=== PATIENT | male | born 1955 | race Caucasian/White ===

== ENCOUNTER 2017-01-12 15:18 | Inpatient (IN) | payer OTHER ==
[~2017-01-12] VITALS: Ht 172.7 cm; Wt 96.9 kg
--- NOTE | 2017-01-12 15:22 | ED.REPORT ---
HPI-Overdose/Alcohol Toxicity Date of Service Jan 12, 2017 ED Provider: Jerome Jackman Pt is a 61 year old male with a history of DM, and suicidal attempts via drug overdose who presents to the ED via EMS after overdosing on prescription medication. Per EMS, it was initially unclear what the pt took, but they determined that the pt's spouse may be missing 50-60 pills of Alprazolam. EMS reports that the pt was sitting on the couch without any notes, and he was last seen well at 11:00 today. EMS determined that the pt's blood sugar was 280 upon arrival and his blood pressure was around 122/30. Per spouse, the pt took 60 tablets of 0.5 mg of Alprazolam. The pt as previously treated at [facility] at [place], [place] for prior episodes. He has had 5 episodes with attempts of overdose previously due to marital issues. Nursing Notes Stated Complaint: OVERDOSE Chief Complaint: OVERDOSE Nursing Notes Reviewed: Yes ([employer] meds not reconciled) General Time Seen by Provider: 15:24 Chief Complaint Drug overdose Hx Obtained From: EMS Arrived By: Ambulance Onset Occurred: Onset unknown Symptom Duration: Since onset Severity: Current: No pain currently Severity: Maximum: No pain Recent Healthcare: No recent doctor visit, No recent hospitalization Similar Sx Previous: Yes Risk-Overdose/Alcohol Tox )( Suicide Risk Stratification : Previous attempt: Prior psych admission RF Statements: Risk factors reviewed (not predictive) Past Medical History Past Medical History Suicidal attempts via prescription drug overdose (5x) Reports: Diabetes mellitus Past Surgical History Denies Smoking History Unknown if Ever Smoker Social History Other Social History: Ambulatory Status Independent Review of Systems Unable to Obtain ROS Patient condition Complete sys rev & neg: except as marked. Physical Exam Initial Vital Signs Vital Signs (First) Date Time Temp Pulse Resp B/P Pulse Ox O2 Delivery O2 Flow Rate FiO2 01/12/17 15:46 36.8 97 29 95/64 96 Nasal Cannula 4 Initial VS: Reviewed, Unavailable Head / Eyes: Atraumatic, Normocephalic Neck: Supple, Full range of motion Extremities: Vascular intact, Neuro intact Skin: Warm, Dry, No cyanosis Alertness: Positive: Sleeping but arousable GENERAL/CONSTITUTIONAL: Presentation is consistent with benzodiazepine use. Respiratory / Chest: Atraumatic, Breath sounds NL, Breath sounds = bilat, No respiratory distress End tidal CO2. Cardiovascular: Heart rate NL, Regular rhythm, Heart sounds NL Blood pressure in the 90s. Abdomen: Atraumatic, Soft, Non-tender NEUROLOGIC: Arousable with sternal rub. Unable to Evaluate: Positive: Unresponsive Interpretation & Diagnostics Lab Results Interpretation Result Diagram: 01/12/17 1548 01/12/17 1548 Test 01/12/17 15:48 01/12/17 16:09 01/12/17 17:09 01/12/17 17:32 White Blood Count 7.1th/mm3 (3.8-10.1) Red Blood Count 4.66mil/mm3 (4.40-5.80) Hemoglobin 14.5g/dL (13.8-17.2) Hematocrit 42.2% (41.0-50.0) Mean Corpuscular Volume 90.6fL (81-100) Mean Corpuscular Hemoglobin 31.1pg (27.0-35.0) Mean Corpuscular Hemoglobin Concent 34.4% (32.0-37.0) Red Cell Distribution Width 13.3% (12.3-15.4) Platelet Count 183bil/L (150-400) Sodium Level 135mEq/L (134-144) Potassium Level 5.1mEq/L (3.5-5.2) Chloride Level 99mEq/L (97-108) Carbon Dioxide Level 20mmol/L (18-29) Blood Urea Nitrogen 15mg/dL (6-24) Creatinine 0.60mg/dL (0.76-1.27) Estimat Glomerular Filtration Rate 147mL/min (>59) Glucose Level 272mg/dL (60-99) Calcium Level 9.3mg/dL (8.5-10.1) Total Bilirubin 0.5mg/dL (0.0-1.2) Aspartate Amino Transf (AST/SGOT) 24U/L (0-50) Alanine Aminotransferase (ALT/SGPT) 22U/L (0-44) Alkaline Phosphatase 81U/L (25-160) Total Protein 6.9g/dL (6.4-8.4) Albumin 4.1g/dL (3.4-5.0) Salicylates Level < 3.0ug/mL (30-250) Acetaminophen Level < 15.0ug/mL Rx (10-25) Alcohols < 10mg/dL (0-10) Hold Urine Received (Received) Urine Color Yellow (YELLOW) Urine Appearance Clear (CLEAR,HAZY) Urine pH 5.5 (5.0-8.0) Urine Specific [place] 1.020 (1.003-1.035) Urine Protein Negativemg/dL (NEG,TRACE) Urine Glucose (UA) 500mg/dL (NEGATIVE) Urine Ketones Negativemg/dL (NEGATIVE) Urine Occult Blood Negative (NEGATIVE) Urine Nitrite Negative (NEGATIVE) Urine Bilirubin Negative (NEGATIVE) Urine Urobilinogen Normalmg/dL (NORMAL) Urine Leukocyte Esterase Negative (NEGATIVE) Urine RBC 0-2/hpf (0-2) Urine WBC 0-5/hpf (0-5) Urine Epithelial Cells Few/hpf (NONE-MOD) Urine Crystals None seen (NONE SEEN) Urine Bacteria Few/hpf (NONE-FEW) Urine Hyaline Casts None/lpf (NONE) Urine Granular Casts None seen (NONE SEEN) Urine Waxy Casts None seen (NONE SEEN) Urine Red Blood Cell Casts None seen (NONE SEEN) Urine White Blood Cell Casts None seen (NONE SEEN) Urine Mucus Present (None Seen) Urine Trichomonas None seen (NONE SEEN) Urine Yeast None (NONE SEEN) Urinalysis Comment None Urine Culture Reflexed Not indicated Urine Opiates Screen Negative Urine Methadone Screen Negative Urine Barbiturates Screen Negative Urine Amphetamines Screen Negative Urine Benzodiazepines Screen Positive Urine Cocaine Metabolite Screen Negative Urine Cannabinoids Screen Negative Test 01/12/17 18:35 Lab Results Interpretation: CBC normal CMP mild hyperglycemia Tox screen positive benzos All negative Tylenol negative Salicylates negative ECG Interpretation ECG Interpretation: No QRS widening. No toxicomes evident on ECG Time: 15:54 Interpreted by: ED physician Normal ECG Interpretation: Normal sinus rhythm X-Ray Chest Interpretation Chest Xray Interpretation: IMPRESSION: 1. Low lung volumes with vascular crowding and probable pulmonary edema. 2. Right suprahilar medial opacity may reflect atelectasis. Recommend a repeat PA and lateral study when clinically feasible. Dictated by: Jamaal Burnett M.D. on 01/12/2017 at 18:08 View: Portable, 1 view Interpretation / Wet Read by: Interpret - Radiologist Re-Eval/Medical Decision Med Decision/Clinical Course This is a 61-year-old male brought from home by EMS with a reported suspected intentional overdose. History is from the and EMS, patient cannot provide any history himself. Alcohol intentional overdoses, they just moved to this area, there is an admit the and he was found with decreased responsiveness- and later turned out the indicates that all of her new alprazolam prescription-#60 tabs of 0.5 mg alprazolam are missing. Patient was last seen normal at 11 AM. The reports none of the patient's own routine medicines are missing. The patient's had multiple admissions, including ICU admission and intubation in the past year following intentional overdoses treated at [facility] in [place], [place] [phone] and I requested records, but not yet received any. Patient does not have a local psychiatrist. She is a diabetic, Accu-Chek was marginally elevated by EMS. The patient's profoundly altered, but appears to be adequately protecting the airway. On arrival the patient arouses to sternal rub, but cannot provide any useful history. Despite the obtundation, the patient has adequate respiratory effort, normal end-tidal CO2, no hypoxia, and with stimulation appears to be adequately protecting his airway sets them decided to watch him decide if intubation might become necessary, but do not find indicated at this time. Did place a nasopharyngeal airway which provided just enough irritant for the patient reaching up and seemed to keep him awake. A Boo was also placed. U tox is positive for benzos. Labs were otherwise normal-negative Tylenol, salicylates.. The patient remained fairly silent, but arousable. At times he required a sternal rub, but he did start to improve responded just voice. He is being admitted to the ICU for continued management. Social workers involved to track down family and attained affidavits for the mental health evaluation should occur once the patient is medically cleared. The case is discussed with the admitting hospitalist. Source of Hx: Old records, EMS Re-Evaluation/Progress #1: Time of Eval: 16:04 Re-Evaluation/Progress Note: Pt rechecked. He has his eye half open. Attempted to obtain more information from pt. All questions addressed. Re-Evaluation/Progress #2: Time of Eval: 16:15 Re-Evaluation/Progress Note: Pt rechecked. Informed pt's spouse of plan for admission. Pt's spouse understands and agrees with plan for admission. All questions addressed. Re-Evaluation/Progress #3: Time of Eval: 18:00 Re-Evaluation/Progress Note: Pt rechecked. Attempted to arouse pt without success. Re-Evaluation/Progress #4: Time of Eval: 18:42 Re-Evaluation/Progress Note: Pt rechecked. Pt was mildly aroused to voice. Re-Evaluation/Progress #5: Time of Eval: 19:09 Re-Evaluation/Progress Note: Pt rechecked. Met with pt's family and informed them of the pt's current condition. Allowed the family to visit the pt. All questions addressed. Consultation #1: Call Returned at: 16:15 Note: Consulted with pt's spouse, Dorothea Carbajal. She reports that the pt took 60 tablets of 0.5 mg of Alprazolam. The pt as previously treated at [facility] at [place], [place] for prior episodes. He has had 5 episodes previously due to marital issues. All questions addressed. Consultation #2: Referral / Consult Name: Jay Manriquez MD Consulted With: Hospitalist Call Returned at: 16:24 Oil Spot Washer: Will see patient, Agrees with eval, Agrees with plan, Accepts admit Differential Diagnosis: Positive: Depression, Overdose, benzodiazapine, Overdose, intentional, Suicidal attempt, Negative: Alcohol abuse Counseled Regarding: Diagnosis, Lab results, Need for admission Discharge & Departure Impression: Primary Impression: Benzodiazepine overdose Encounter type: initial encounter Injury intent: intentional self-harm Qualified Code: T42.4X2A - Poisoning by benzodiazepines, intentional self-harm , initial encounter Additional Impression: Suicidal overdose Encounter type: initial encounter Qualified Code: T50.902A - Poisoning by unspecified drugs, medicaments and biological substances, intentional self-harm , initial encounter Disposition: ADMITTED TO HOSPITAL Discharge Condition All VS Reviewed: Yes Condition: Stable Referrals: [facility] Scribe Attestation Portions of this note were transcribed by Radha Callahan. I, Dr. Jackman personally performed the history, physical exam and medical decision-making; I reviewed and confirmed the accuracy of the information in the transcribed note. Signed by: Sia Damon, 01/12/17 and 18:00. copies to: [facility] Jerome Jackman MD Jan 12, 2017 15:22 Radha Irene Jan 12, 2017 15:27
[2017-01-12] MEDS ORDERED: 0.9% Sodium Chloride 1,000 ML IV ONE (15:26)
[2017-01-12 15:46] VITALS: BP 95/64; PULSE 97; RESP 29; O2SAT 96
[2017-01-12 15:53] LABS: Mean Corpuscular Hemoglobin 31.1 pg (27.0-35.0); Mean Corpuscular Volume 90.6 fL (81-100)
[2017-01-12 15:57] VITALS: BP 117/73; PULSE 104; RESP 28; O2SAT 98
[2017-01-12 16:16] VITALS: BP 116/86; PULSE 104; RESP 30; O2SAT 97
[2017-01-12] MEDS ORDERED: Ondansetron 2 mg/mL 2 mL Inj IVPUSH PRN (17:00)
--- NOTE | 2017-01-12 17:24 | PCM.HPMED ---
Subjective Date of Service Jan 12, 2017 Primary Provider: Admitting Physician: Primary Care Physician: Attending Physician: Chief Complaint: Suicidal attempt, benzodiazepine overdose History of Present Illness: 61-year-old male with previous drug overdose, marital problem presented with benzodiazepine overdose. Since patient was deeply sedated, history was obtained by previous records. According to ED provider, Per EMS, patient was sitting on the couch, unresponsive, last normal was 11 AM today, arrived to the ED 3pm. Aspirin spouse, patient took 60 tablets of 0.5 mg alprazolam. The pt as previously treated at [facility] at [place], [place] for prior episodes. He has had 5 episodes with attempts of overdose previously due to marital issues.' s contact was unable to verify in ED. ED VS 95/64, 97, 29, afebrile, 96% on 4liters, pt was able to protect his airways. Very somnolent, but awake by noxious stimuli. EKG sinus [id number], no high degree blocks, no Qt prolongation. VS remained stable 110-120s, mildly tachypneic 28-30s, but breathing regularly. labs showed unremarkable cbc, cmp except [id number] Review of Systems: Unable to obtain review of system as patient was deeply sedated Home Medications Unable to obtain review of system as patient was deeply sedated PMH Unable to obtain review of system as patient was deeply sedated Social History Smoking Status: Unknown if Ever Smoker Exam Vital Signs Vital Sign - Last Date Time Temp Pulse Resp B/P Pulse Ox O2 Delivery O2 Flow Rate FiO2 01/12/17 16:16 104 30 116/86 97 Nasal Cannula 2 01/12/17 15:57 36.8 Exam awake with noxious stimuli, incoherent sounds, PERRLA, no JVD, MMM, no LAD, moving four extremities. RRR, nl s1, s2 no mrg corase BS, no w,c S,ND,NT,normoactive BS+ warm, no edema, pulses 2/2 Lab and Diagnostics Result Diagram: 01/12/17 1548 01/12/17 1548 Assessment & Plan Acute, active alleged benzodiazepine overdose, POA, [id number] of alprazolam, pt is protecting airways, no cardiac arrhythmias observed, hemodynamically stable -Monitor on telemetry, low threshold for intubation if patient cannot protect his airways -Given coarse breathing, we will obtain chest x-ray if any signs of pneumonia, start abx given high risk of aspiration -keep nothing by mouth for now -will verify hx from once contact information is available -Utox, for possible coingestion. -O2 supplement target Spo2>95% -SW and psychiatric assessment once pt is more stable, likely benefit from inpatient psychiatric tx -neurocheck q1 in PCC, monitor withdrawal, possible CIWA protocol hyperglycemia, POA, 200s, start RISS, follow up a1c dispo:Patient will be admitted with inpatient status with expectation of inpatient therapy for more than 2 midnights diet:NPO for now dvt ppx:LMWH Full code Time spent 65min Santa Bernard MD Jan 12, 2017 17:24
[2017-01-12 17:37] VITALS: BP 119/70; PULSE 96; RESP 23; O2SAT 97
[2017-01-12 17:48] LABS: APPEARANCE,URINE CLEAR (CLEAR,HAZY); COLOR,URINE YELLOW (YELLOW)
[2017-01-12 17:50] LABS: PH,URINE 5.5 (5.0-8.0)
[2017-01-12 17:51] LABS: OCCULT BLOOD,URINE NEGATIVE (NEGATIVE); UROBILINOGEN,URINE NORMAL (NORMAL)
--- NOTE | 2017-01-12 18:11 | DRSVH ---
PROCEDURE: X-RAY CHEST ONE VIEW, PORTABLE ([id number]) INDICATIONS: coarse breath sounds tachpynea TECHNIQUE: One view of the chest was acquired. COMPARISON: None. FINDINGS: Surgical changes and devices: None. Lungs and pleura: No pleural effusions or pneumothorax. There are low lung volumes. There is bilat eral pulmonary vascular prominence consistent with vascular crowding as well as a likely component of pulmonary edema. There also are right suprahilar opacities. Mediastinum: Mediastinal contours appear prominent likely due to portable supine technique and low v olumes. Heart size is normal. Bones and chest wall: No suspicious bony lesions. Overlying soft tissues appear unremarkable. IMPRESSION: 1. Low lung volumes with vascular crowding and probable pulmonary edema. 2. Right suprahilar medial opacity may reflect atelectasis. Recommend a repeat PA and lateral study when clinically feasible. Dictated by: Jamaal Burnett M.D. on 01/12/2017 at 18:08 Approved by: Jamaal Burnett M.D. on 01/12/2017 at 18:09
[2017-01-12 19:46] VITALS: BP 114/69; PULSE 104; RESP 22; O2SAT 96
[2017-01-12] MEDS: Insulin Human REGular 300 Unit/3 mL Inj SUBQ SCH (20:23)
[2017-01-12 20:26] VITALS: BP 116/69; PULSE 107; RESP 32; O2SAT 97
--- NOTE | 2017-01-12 20:46 | ABG ---
DateTimeAnalyzed 20:38:00 -_ pH ____7.412 - 7.350 7.450 pCO2 ___34.2__ -mmHg 35.0 45.0 pO2 ___65.7__ -mmHg 69.0 116 HCO3- ___21.3__ -mmol/L 22.0 26.0 ABE ___-2.1__ -mmol/L -2.0 2.0 tHb ___13.7__ -g/dL O2Hb ___90.6__ -% COHb ____1.6__ -% MetHb ____0.5__ -% sO2 ___92.5__ -% 25.0 FIO2 ___32.0__ -% Drawn By MM - Date/Time Notified____ 20:46:00 -_ Spontaneous_RR ___18.0__ -b/min Liter_Flow ____3.0__ -L/min Oxygen Device 1 __CANNULA - Notified By MM - Notified Whom DR HASANDRAS - B 761 -mmHg tO2 ___17.4__ -Vol% Justice test _Positive -
--- NOTE | 2017-01-12 21:00 | NUR ---
Admit to CCU Pt admitted to CCU room 2016 from ED in [facility]. Wakens to loud voice and painful stimuli, but does not follow commands, and does not stay awake long. Lungs extremely coarse. Able to hear secretions at bedside without stethoscope. Oral care, including semi deep sectioning performed to protect airway. Pt also on EtCO2 monitoring which reads WNL at this time. Pt does breath through mouth, so he was switched from NC to Oxymask for better O2 radiology receptionist. Pt also placed un upright position. Tele shows SR/ST 90s-100s. Does not appear to be in rep. distress, and SpO2 mid to high 90s on 5L Oxymask. Boo patent to gravity. ABG performed. at bedside and it was determined pt did not need to be intubated at this time. Close monitoring. Care ongoing
[2017-01-13] VITALS (7 sets, daily range): BP systolic 89–118; BP diastolic 42–68; PULSE 82–108; RESP 20–58; O2SAT 94–98
[2017-01-13] MEDS ORDERED: Heparin 5,000 Unit/mL Inj SUBQ SCH (00:30)
[2017-01-13] MEDS: Insulin Human REGular 300 Unit/3 mL Inj SUBQ SCH ×3 (03:29→15:19)
[2017-01-13 03:38] LABS: BASOPHILS % (AUTO) 0.1 % (0-3); EOSINOPHILS % (AUTO) 0.5 % (0-5); MONOCYTES % (AUTO) 10.1 % (4-12); Mean Corpuscular Hemoglobin 31.2 pg (27.0-35.0); Mean Corpuscular Volume 90.5 fL (81-100); NEUTROPHILS % (AUTO) 77.5 % (40-74); Platelet Count 162 bil/L (150-400)
[2017-01-13 04:08] LABS: Magnesium 1.6 mg/dL (1.6-2.6); Phosphorus 4.2 mg/dL (2.5-4.9)
--- NOTE | 2017-01-13 05:36 | NUR ---
Neuro Pt able to awaken for longer as shift progressed. He will awaken, pull off gown and blankets and try and climb out of bed. During last episode, pt able to have discussion, and although he was confused as to where he was and why he was here, he was at least able to carry on a conversation. At this time he does not remember ingesting any medications. Bed alarm remains on pt. Close monitoring. Care ongoing
--- NOTE | 2017-01-13 15:12 | NUR ---
Social Work: Multidisciplinary Rounds/Screen D: Per EMR review, pt is a 61 year old male admitted for overdose. Pt is [employer] of [employer] insurance with no supplement. PCP is not listed. NOK is pt's , Raven Raines. AD not on file. No readmit score entered at this time. Pt is currently admitted to CCU. Per ED COLLECTION COORDINATOR note, pt has attempted suicide 6 times in the last 13 months resulting in 2 psychiatric hospitalizations. Pt and his family recently moved from [place]. During this time, the pt has been experiencing increased paranoid. The pt's and family members have completed affidavits for alf. Pt has a gambling disorder and family is experiencing financial stress because of this. COLLECTION COORDINATOR informed MD and RN team of this at am rounds. Pt may require DMHP evaluation if the pt is non-voluntary for psychiatric treatment. COLLECTION COORDINATOR has attempted to contact the patient's to gather further information with no success. UDS was negative for all substances except for BZO. CBC and BMP completed in ED. A: Pt who lives at home with his . P: Evolving; anticipate that the pt will likely require psychiatric hospitalization. COLLECTION COORDINATOR to assess pt when medically cleared to determine if pt requires DMHP evaluation. BENJAMIN Orourke
--- NOTE | 2017-01-13 16:33 | PCM.PNMED ---
Subjective Date of Service Jan 13, 2017 Subjective pt is more alert but easily drowsy, admitted he ingested alprazolam 60tabs Raven confirmed history, pt took her alprazolam 60tab, pt has DM on oral meds, HTN, HLD, depression. No allergies Exam Vital Signs Vital Sign - Last Date Time Temp Pulse Resp B/P Pulse Ox O2 Delivery O2 Flow Rate FiO2 01/13/17 11:56 Supplement Oxygen 01/13/17 11:56 36.9 82 22 111/63 97 5.00 Intake and Output 01/12/17 01/12/17 01/13/17 Cumulative From/Thru 15:00 23:00 07:00 01/12/17 16:00 - 01/12/17 20:26 Intake Total 999 ml 999 ml Balance 999 ml 999 ml Intake IV Total 999 ml 999 ml Exam AAOx1-2, drowsy PERRLA, no JVD, MMM, no LAD, moving four extremities. RRR, nl s1, s2 no mrg CTAB, no w,c S,ND,NT,normoactive BS+ warm, no edema, pulses 2/2 IVs and Medications Medications Reviewed: Medications were reviewed in detail Lab and Diagnostics Result Diagram: 01/13/17 0320 01/13/17 0320 Assessment & Plan Acute, active benzodiazepine overdose, POA, 0.0ejr00mgh of alprazolam, Utox+ only for benzo, on admission, pt is protecting airways, no cardiac arrhythmias observed, hemodynamically stable. -pt remained clinically, -keep nothing by mouth for now, 1/2 ns 100cc/hr while NPO -O2 supplement target Spo2>95% -SW and psychiatric assessment once pt is more stable, likely benefit from inpatient psychiatric tx -CIWA protocol if any signs of benzo withdrawal Depression, Suicidal [id number] in the past, suspected paranoid idea -continue [id number] qd, will get psychiatric consult chronic, stable DM, hyperglycemia, POA, 200s, continue RISS, follow up a1c, pt is on metformin/ actos 15/500 bid per , currently held. HTN, will continue lisinopril 5mg qd, HLD, continue simvastatin dispo:likely 1-2days to inpatient psych diet:soft diet, advance as tolerate dvt ppx:LMWH Full code VTE Mechanical Devices: Intermittant Pneumatic CD Time spent 35min Santa Bernard MD Jan 13, 2017 16:33
[2017-01-13] MEDS: Insulin LISPRO 300 Unit/3 mL Inj SUBQ SCH ×2 (17:30→20:51)
--- NOTE | 2017-01-13 18:12 | NUR ---
Mentation.. slept most of shift, but was always arousable and oriented. Still slightly confused on which hospital he is at as he is new to the area moving from [facility] recently. Is now awake, alert and conversant. Admits to being depressed, but has no recollection of taking pills. Dr Bernard updated and pt is now taking po and is tanna diet well. Has been changed to [facility] tele status.
[2017-01-14] VITALS (8 sets, daily range): BP systolic 116–125; BP diastolic 70–78; PULSE 85–105; RESP 17–28; O2SAT 94–96
--- NOTE | 2017-01-14 06:06 | NUR ---
Mentation Pt AOx3, cooperative with care, reports feeling "jittery" at HS. CIWA score of 8. Pt denied any suicidal ideation. IVF discontinued, bennett discontinued this AM at 0600. Pt taking PO adequately. VSS, tele SR/ST 70s-100s. SpO2 95% on RA. Pt asked this AM "Am I in the psych part of the hospital?" Reoriented to place. No acute events overnight. Not yet OOB.
[2017-01-14] MEDS: Insulin LISPRO 300 Unit/3 mL Inj SUBQ SCH ×4 (09:15→21:16)
--- NOTE | 2017-01-14 12:44 | PCM.PNMED ---
Subjective Date of Service Jan 14, 2017 Subjective pt is lucid, AAOX3, denied LUCERO, abd pain, SOB, Exam Vital Signs Vital Sign - Last Date Time Temp Pulse Resp B/P Pulse Ox O2 Delivery O2 Flow Rate FiO2 01/14/17 08:55 Supplement Oxygen 01/14/17 08:55 36.7 90 123/72 95 01/14/17 05:01 17 01/13/17 16:00 5.00 Intake and Output 01/13/17 01/13/17 01/14/17 Cumulative From/Thru 15:00 23:00 07:00 01/12/17 16:00 - 01/14/17 06:46 Intake Total 780 ml 1237 ml 3016 ml Output Total 1400 ml 2400 ml 3800 ml Balance -620 ml -1163 ml -784 ml Intake Oral 870 ml 870 ml IV Total 780 ml 367 ml 2146 ml Output Urine Total 1400 ml 2400 ml 3800 ml # Bowel Movements 0 0 Exam AAOX3 PERRLA, no JVD, MMM, no LAD, moving four extremities. RRR, nl s1, s2 no mrg CTAB, no w,c S,ND,NT,normoactive BS+ warm, no edema, pulses 2/2 IVs and Medications Medications Reviewed: Medications were reviewed in detail Lab and Diagnostics Result Diagram: 01/13/17 0320 01/13/17 0320 Assessment & Plan Acute, active benzodiazepine overdose, POA, 0.5dym55uic of alprazolam, Utox+ only for benzo, on admission, pt is protecting airways, no cardiac arrhythmias observed, hemodynamically stable. -pt remained clinically stable, medical cleared for d/c -SW and psychiatric assessment once pt is more stable, likely benefit from inpatient psychiatric tx Depression, Suicidal [id number] in the past, suspected paranoid idea -continue [id number] qd, need further psychiatric consult chronic, stable DM, hyperglycemia, POA, 200s, continue RISS, follow up a1c, pt is on metformin/ actos 15/500 bid per , currently held. HTN, will continue lisinopril 5mg qd, HLD, continue simvastatin dispo:patient is medical cleared for discharged to inpatient psychiatric unit diet:soft diet, advance as tolerate dvt ppx:LMWH Full code VTE Mechanical Devices: Intermittant Pneumatic CD Time spent 35min Santa Bernard MD Jan 14, 2017 11:00
--- NOTE | 2017-01-14 13:32 | NUR ---
Social work: Mental Health Assessment Marcos Raines III 01/14/2017 1200 Current Situation: Pt is a 61 year old male admitted for overdose of Alprazolam (50-60 tabs; 0.5 mg). Per MD at rounds, pt is medically stable for MH evaluation and to go up to the mental health unit. CONVERTER SKIMMER met with the patient at bedside. Pt confirms that he intentionally ingested his wifes Alprazolam because I was feeling very depressed. Pt states that he knew that ingesting the medication could be lethal if not treated and states I didnt care if I or if I woke up. The patient and his spouse just moved from [place], [place] and reports that he has been experiencing stress due to lack of work and housing which has amplified his existing depression. Pt states that he continues to have the same apathetic outlook on life and continues to feel depressed about his current situation. Pt cannot contract for safety at this time and would like to be placed on a mental health unit for further stabilization and medication adjustments. Current Mental Status: Pt is a/o x4. Pt dressed appropriately in hospital gown with appropriate hygiene and grooming for admission. Pt with good eye contact, clear speech of normal rate, volume and fluency. Pt endorses depressed mood which is congruent with current affect. Pt is cooperative with assessment but downplays the severity of his attempts and mental health history; pts reports are not congruent with wifes reports, see collateral information provided below. Pt acknowledges that in the past has omitted information to paint himself in a better light. 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 Pt denies experiencing any a/v hallucinations however pts reports that since moving to [place], the patient has had several experiences in which he was responding to visual hallucinations and experiencing paranoid thinking (see below). Pt states that his appetite and sleep have remained unchanged. MH History: Pt reports to [facility] CONVERTER SKIMMER that he has experienced periods of depression along with a few hospitalizations for intentional overdose. Pt states that he was placed on a psychiatric unit once in [place]. Per pts , the patient has been placed on a psychiatric unit twice in the last 13 months all for overdose attempts. The pt has a psychiatrist in [place], Dr. Jacinto who has been prescribing medications. The pt is currently on Lexapro 10mg Q24, per the pt. Pt does not have an outpatient prescriber (PCP or psychiatry) in [place]. CD History: Pt states that he does not use illicit substances and never has. Pts UDS was negative except for BZO. Collateral Information: CONVERTER SKIMMER spoke privately with the patients . She states that the patient will downplay the severity of his depression and has a gift for making himself seem better than he is. The pt has been hospitalized 6 times for overdose attempts- once requiring intubation. The pt has been placed on mental health units twice as a result. This is the pts first hospitalization since moving to [place]. states that the pt has grown more paranoid since moving and often makes statements like they are looking for me and they are coming for me. The pt cannot articulate who they are. The pt has also responded to visual hallucinations and believed that a fire truck was parked in his driveway and that his had called them. Pt also experienced a similar episode in which he believed a helicopter was hovering in his yard and people were there to get him. Pts is very concerned by the patients behaviors and does not feel that she can safely manage the patient in a lesser restrictive setting. She has attempted to help the patient with medication management and connect with outpatient providers however the pt has not been able to demonstrate appropriate follow through. Disposition: Based on the pts reports of continued depressed and apathetic mood, his extensive mental health history and the severity of his attempt, pt is a candidate for inpatient psychiatric hospitalization. The pt is voluntarily agreeing to go to a mental health unit and understands that he will need to participate in groups, medication management and therapy. The pt and his both feel that this is the most appropriate option. The patients lack of mental daren resources and failure to engage in outpatient treatment since moving to [place], along with possible visual hallucinations and paranoid thinking patterns further support the need for inpatient mental health stabilization. BENJAMIN has staffed this with attending MD who agrees with the plan to seek inpatient placement on a psychiatric unit. The patient is medically cleared for transfer pending bed. BENJAMIN Orourke Addendum: 01/14/17 at 1344 by ROMANA LANCASTER SS [facility]- no beds today [facility]- no beds today [facility]- no beds today [place]- no beds at this time; call back at 4:00pm to inquire if beds become available [facility]- Awaiting return phone call from screener.
--- NOTE | 2017-01-14 18:50 | NUR ---
Mood/Education/Activity Pt mood has been steadily improving throughout shift. Pt is pleasant and cooperative with all cares. He occaisionally makes jokes. Pt educated on insulin administration for diabetes management Pt encouraged to get up and move when his legs become painful. Pt states that activity does help, however he feels slightly off balance when standing.
--- NOTE | 2017-01-14 19:10 | NUR ---
Social Work Note D/A/P: ENERGY OPERATIONS VICE PRESIDENT called [facility] and spoke with Marla who indicated that she was going to be considering Pt for possible admission today. Marla requested that ENERGY OPERATIONS VICE PRESIDENT fax Pt's clinical information for review. ENERGY OPERATIONS VICE PRESIDENT faxed the requested documentation to Marla at [phone]. BENJAMIN Key, AAC
[2017-01-15 03:30] VITALS: BP 122/82; PULSE 104; RESP 20; O2SAT 95
--- NOTE | 2017-01-15 05:26 | NUR ---
Restful Night Pt had a restful night w/ no c/o pain. Pt A&O, pleasant and cooperative w/ care. Pt also talkative w/ staff, denies plan to harm self, denies hallucinations/headache/nausea. Vitals stable overnight. was updated on status of patient with patient permission. would like to speak to social services aide in morning regarding new placement. Will pass on in report.
[2017-01-15 08:55] VITALS: BP 137/79; PULSE 85; RESP 16; O2SAT 96
[2017-01-15] MEDS: Insulin LISPRO 300 Unit/3 mL Inj SUBQ SCH ×4 (09:07→20:41)
--- NOTE | 2017-01-15 09:17 | NUR ---
Social Work: Continued Discharge Planning D: Pt discussed in am rounds. SURVEY INTERVIEWER is continuing to search for voluntary MH placement for the patient. [facility] does not have beds today [facility] is not accepting out of [facility] patients [place] has no appropriate beds at this time [facility] is reviewing the patient's clinicals and will call this afternoon if they have a bed available. [facility]; SURVEY INTERVIEWER left a message providing pt's info and requested return phone call [place] has no beds available today A: pt who is a voluntary MH patient P: [facility] is reviewing for possible admission; SURVEY INTERVIEWER to continue to follow and coordinate transfer pending final MD order. BENJAMIN Orourke
[2017-01-15 11:52] VITALS: BP 125/75; PULSE 90; RESP 18; O2SAT 94
--- NOTE | 2017-01-15 12:55 | PCM.PNMED ---
Subjective Date of Service Jan 15, 2017 Subjective no overnight event, pt remained medically stable Exam Vital Signs Vital Sign - Last Date Time Temp Pulse Resp B/P Pulse Ox O2 Delivery O2 Flow Rate FiO2 01/15/17 11:52 36.7 90 18 125/75 94 01/15/17 08:55 Room Air 01/13/17 16:00 5.00 Intake and Output 01/14/17 01/14/17 01/15/17 Cumulative From/Thru 15:00 23:00 07:00 01/12/17 16:00 - 01/15/17 05:19 Intake Total 1236 ml 300 ml 4552 ml Output Total 850 ml 4650 ml Balance 386 ml 300 ml -98 ml Intake Oral 1236 ml 300 ml 2406 ml IV Total 2146 ml Output Urine Total 850 ml 4650 ml # Voids 1 1 # Bowel Movements 0 Exam AAOX3 PERRLA, no JVD, MMM, no LAD, RRR, nl s1, s2 no mrg CTAB, no w,c S,ND,NT,normoactive BS+ warm, no edema, pulses 2/2 IVs and Medications Medications Reviewed: Medications were reviewed in detail Lab and Diagnostics Result Diagram: 01/13/17 0320 01/13/17 0320 Assessment & Plan Acute, active benzodiazepine overdose, POA, [id number] of alprazolam, Utox+ only for benzo, on admission, pt is protecting airways, no cardiac arrhythmias observed, hemodynamically stable. -pt remained clinically stable, medical cleared for d/c -SW and psychiatric assessment once pt is more stable, likely benefit from inpatient psychiatric tx Depression, Suicidal [id number] in the past, suspected paranoid idea -continue [id number] qd, need further psychiatric consult chronic, stable DM, hyperglycemia, POA, 200s, continue lispro SS, a1c8.8, will be back on metformin/actos 15/500 bid per , currently held. HTN, will continue lisinopril 5mg qd, HLD, continue simvastatin dispo:patient is medical cleared for discharged to inpatient psychiatric unit, pending acceptance at [facility] diet:soft diet, advance as tolerate dvt ppx:LMWH Full code VTE Mechanical Devices: Intermittant Pneumatic CD Time spent 35min Santa Bernard MD Jan 15, 2017 12:55
--- NOTE | 2017-01-15 13:36 | NUR ---
Social Work: Multidisciplinary Rounds/Discharge Pt discussed in am rounds. Pt is medically stable for transfer to an inpatient unit. DISASTER RESPONSE DIRECTOR received telephone call from Ray at the [facility] with Dr. Dale to follow. He is requesting discharge orders and summary faxed to [phone]. DISASTER RESPONSE DIRECTOR has informed attending MD of pt's acceptance at [facility] and requested discharge summary to include in packet. DISASTER RESPONSE DIRECTOR has left a message for the patient's insurance company notifying of pt's acceptance and transfer to [facility]. DISASTER RESPONSE DIRECTOR met with the patient and at bedside to notify of pt's admission at [facility]. Pt continues to report depressed and apathetic affect towards life. Pt still not able to contract for safety and is agreeable to voluntary placement at [facility] in [place]. DISASTER RESPONSE DIRECTOR will fax discharge paperwork to [facility] once completed by MD and will coordinate with household appliance installer to arrange for transportation. BENJAMIN Orourke Addendum: 01/15/17 at 1719 by ROMANA LANCASTER SS Discharge ppw and summary faxed to [facility]. DISASTER RESPONSE DIRECTOR spoke with coagulator for swing shift. She states that she is not sure what time she will be able to get the patient down there. She is aware that this DISASTER RESPONSE DIRECTOR is leaving for the night and to coordinate with the ED DISASTER RESPONSE DIRECTOR to arrange for transfer. DISASTER RESPONSE DIRECTOR left message for ED DISASTER RESPONSE DIRECTOR notifying of this and to expect contact with [facility] for pt's transport.
--- NOTE | 2017-01-15 14:46 | PCM.DIMED ---
Discharge Instructions Date of Service Jan 15, 2017 Dates of Hospitalization Jan 12, 2017 at 19:38 Discharge Diagnosis Discharge Diagnosis Suicidal attempt with drug overdose Medication Instructions Additional med instructions Please continue home medication: Metformin/actos 500/15 twice a day Lisinopril 5mg daily Simvastatin 40mg daily Lexapro 10mg daily Patient Instructions Patient Instructions You were hospitalized with overdose of Alprazolam. Your condition remained stable throughout hospitalization. Given your multiple suicidal attempt, You are discharged to inpatient psychiatric facility. Please follow up with your primary doctor once your are discharged from psychiatric facility. As you have enough home medicine, prescription was not given. Santa Bernard MD Jan 15, 2017 14:46
[2017-01-15] MEDS ORDERED: SIMV20TA4 PO (14:49)
[2017-01-15] MEDS ORDERED: ESCI10TA3 PO (14:49)
[2017-01-15] MEDS ORDERED: PIOG1TAB2 PO (14:49)
[2017-01-15] MEDS ORDERED: LISI-571 PO (14:49)
--- NOTE | 2017-01-15 14:55 | PCM.DC.MED ---
Discharge Summary Date of Service Jan 15, 2017 Dates of Hospitalization Date of Hospital Admission Jan 12, 2017 at 19:38 Date of Discharge: Jan 15, 2017 Providers: Admitting Physician: Santa Brar MD Primary Care Physician: Suleiman Attending Physician: Santa Brar MD Diagnosis at Time of Discharge Diagnosis at Time of Discharge Benzodiazepine overdose, Suicidal attempt hx of Multiple suicidal attempt Diabetes Hypertension Hyperlipidemia Procedures XRay, CTs & MRIs PROCEDURE: X-RAY CHEST ONE VIEW, PORTABLE ([id number]) INDICATIONS: coarse breath sounds tachpynea TECHNIQUE: One view of the chest was acquired. COMPARISON: None. FINDINGS: Surgical changes and devices: None. Lungs and pleura: No pleural effusions or pneumothorax. There are low lung volumes. There is bilateral pulmonary vascular prominence consistent with vascular crowding as well as a likely component of pulmonary edema. There also are right suprahilar opacities. Mediastinum: Mediastinal contours appear prominent likely due to portable supine technique and low volumes. Heart size is normal. Bones and chest wall: No suspicious bony lesions. Overlying soft tissues appear unremarkable. IMPRESSION: 1. Low lung volumes with vascular crowding and probable pulmonary edema. 2. Right suprahilar medial opacity may reflect atelectasis. Recommend a repeat PA and lateral study when clinically feasible. Dictated by: Jamaal Burnett M.D. on 01/12/2017 at 18:08 Approved by: Jamaal Burnett M.D. on 01/12/2017 at 18:09 Brief History 61-year-old male with previous drug overdose, marital problem presented with benzodiazepine overdose. Since patient was deeply sedated, history was obtained by previous records. According to ED provider, Per EMS, patient was sitting on the couch, unresponsive, last normal was 11 AM today, arrived to the ED 3pm. Aspirin spouse, patient took 60 tablets of 0.5 mg alprazolam. The pt as previously treated at [facility] at [place], [place] for prior episodes. He has had 5 episodes with attempts of overdose previously due to marital issues.' s contact was unable to verify in ED. ED VS 95/64, 97, 29, afebrile, 96% on 4liters, pt was able to protect his airways. Very somnolent, but awake by noxious stimuli. EKG sinus [id number], no high degree blocks, no Qt prolongation. VS remained stable 110-120s, mildly tachypneic 28-30s, but breathing regularly. labs showed unremarkable cbc, cmp except [id number] Hospital Course Acute dx benzodiazepine overdose, It was reported that patient took [id number] of alprazolam, Utox+ only for benzo. On admission, pt was protecting airways, no cardiac arrhythmias observed , hemodynamically stable. EKG was unremarkable, labs were also unremarkable. Patient remained equally stable throughout the hospital course. Depression, Suicidal [id number] in the past, suspected paranoid idea per , As patient regained consciousness, Lexapro 0mg qd started. Patient currently denied any slow Ant or homicidal idea. However given extensive suicidal attempt in the past, patient is agreeable to get further treatment in inpatient psychiatric facility. Patient was accepted by [facility]. chronic dx DM, a1c8.8, glucose was controlled with lispro sliding scale. Plan is to back on metformin/actos after discharge to home HTN, continued lisinopril 5mg qd, HLD, continued simvastatin Exam Vital Signs (Last) Date Time Temp Pulse Resp B/P Pulse Ox O2 Delivery O2 Flow Rate FiO2 01/15/17 11:52 36.7 90 18 125/75 94 01/15/17 08:55 Room Air 01/13/17 16:00 5.00 Exam NAD, comfortably laying down on the bed no JVD, MMM, no LAD RRR, nl s1, s2 no mrg CTAB, no w,c S,ND,NT,normoactive BS+ warm, no edema, pulses 2/2 Test 01/12/17 15:48 01/12/17 16:09 01/12/17 17:09 01/12/17 17:32 Hemoglobin A1c 8.8% (4.8-5.6) Salicylates Level < 3.0ug/mL (30-250) Acetaminophen Level < 15.0ug/mL Rx (10-25) Alcohols < 10mg/dL (0-10) Hold Urine Received (Received) Urine Color Yellow (YELLOW) Urine Appearance Clear (CLEAR,HAZY) Urine pH 5.5 (5.0-8.0) Urine Specific [place] 1.020 (1.003-1.035) Urine Protein Negativemg/dL (NEG,TRACE) Urine Glucose (UA) 500mg/dL (NEGATIVE) Urine Ketones Negativemg/dL (NEGATIVE) Urine Occult Blood Negative (NEGATIVE) Urine Nitrite Negative (NEGATIVE) Urine Bilirubin Negative (NEGATIVE) Urine Urobilinogen Normalmg/dL (NORMAL) Urine Leukocyte Esterase Negative (NEGATIVE) Urine RBC 0-2/hpf (0-2) Urine WBC 0-5/hpf (0-5) Urine Epithelial Cells Few/hpf (NONE-MOD) Urine Crystals None seen (NONE SEEN) Urine Bacteria Few/hpf (NONE-FEW) Urine Hyaline Casts None/lpf (NONE) Urine Granular Casts None seen (NONE SEEN) Urine Waxy Casts None seen (NONE SEEN) Urine Red Blood Cell Casts None seen (NONE SEEN) Urine White Blood Cell Casts None seen (NONE SEEN) Urine Mucus Present (None Seen) Urine Trichomonas None seen (NONE SEEN) Urine Yeast None (NONE SEEN) Urinalysis Comment None Urine Culture Reflexed Not indicated Urine Opiates Screen Negative Urine Methadone Screen Negative Urine Barbiturates Screen Negative Urine Amphetamines Screen Negative Urine Benzodiazepines Screen Positive Urine Cocaine Metabolite Screen Negative Urine Cannabinoids Screen Negative Test 01/12/17 18:35 01/13/17 03:20 Hepatitis B Surface Antigen Negative (Negative) Hepatitis C Antibody <0.1s/co ratio (0.0-0.9) HIV (1&2) Ag and Ab, 4th Generation Non reactive (Non Reactive) White Blood Count 8.0th/mm3 (3.8-10.1) Red Blood Count 4.30mil/mm3 (4.40-5.80) Hemoglobin 13.4g/dL (13.8-17.2) Hematocrit 38.9% (41.0-50.0) Mean Corpuscular Volume 90.5fL (81-100) Mean Corpuscular Hemoglobin 31.2pg (27.0-35.0) Mean Corpuscular Hemoglobin Concent 34.4% (32.0-37.0) Red Cell Distribution Width 13.2% (12.3-15.4) Platelet Count 162bil/L (150-400) Neutrophils (%) (Auto) 77.5% (40-74) Lymphocytes (%) (Auto) 11.7% (14-46) Monocytes (%) (Auto) 10.1% (4-12) Eosinophils (%) (Auto) 0.5% (0-5) Basophils (%) (Auto) 0.1% (0-3) Sodium Level 143mEq/L (134-144) Potassium Level 4.1mEq/L (3.5-5.2) Chloride Level 107mEq/L (97-108) Carbon Dioxide Level 21mmol/L (18-29) Blood Urea Nitrogen 16mg/dL (6-24) Creatinine 0.62mg/dL (0.76-1.27) Estimat Glomerular Filtration Rate 141mL/min (>59) Glucose Level 216mg/dL (60-99) Calcium Level 9.0mg/dL (8.5-10.1) Phosphorus Level 4.2mg/dL (2.5-4.9) Magnesium Level 1.6mg/dL (1.6-2.6) Total Bilirubin 0.8mg/dL (0.0-1.2) Aspartate Amino Transf (AST/SGOT) 16U/L (0-50) Alanine Aminotransferase (ALT/SGPT) 19U/L (0-44) Alkaline Phosphatase 76U/L (25-160) Total Protein 5.8g/dL (6.4-8.4) Albumin 3.8g/dL (3.4-5.0) Discharge Medications Discharge Medications Escitalopram Oxalate (Lexapro) 10 Mg Tablet 10 MG PO DAILY Prescribed by: SANTA BRAR MD Lisinopril (Lisinopril) 5 Mg Tablet 5 MG PO DAILY Prescribed by: SANTA BRAR MD Pioglitazone/Metformin 15-500 mg (Actoplus Met 15-500 mg) 1 Each Tablet 1 TABLET PO BID Prescribed by: SANTA BRAR MD Simvastatin (Simvastatin) 20 Mg Tablet 20 MG PO HS Prescribed by: SANTA BRAR MD Additional med instructions Please continue home medication: Metformin/actos 500/15 twice a day Lisinopril 5mg daily Simvastatin 40mg daily Lexapro 10mg daily Followup Plan Disposition: [facility] Patient Instructions You were hospitalized with overdose of Alprazolam. Your condition remained stable throughout hospitalization. Given your multiple suicidal attempt, You are discharged to inpatient psychiatric facility. Please follow up with your primary doctor once your are discharged from psychiatric facility. As you have enough home medicine, prescription was not given. Time spent 65 minutes Santa Brar MD Jan 15, 2017 14:55
--- NOTE | 2017-01-15 17:34 | NUR ---
Ambulation Pt ambulated in room Independently with steady gait. No c/o SOB and vitals remained stable. Pt understood if walking in the hallway a staff member needs to be with him. Will continue to monitor.
[2017-01-15 19:17] VITALS: BP 137/79; PULSE 92; RESP 20; O2SAT 94
--- NOTE | 2017-01-15 20:50 | NUR ---
Social Work Note: Discharge D/A/P:HANDLE SEWER spoke with Marla at [facility] and Pt was accepted for admission by Dr Everett Reinoso with an admission time of 2129. HANDLE SEWER spoke with RN Shell Sorter who arranged for Pt to be transported to [facility] at 2029. BENJAMIN Key, AAC
[2017-01-15 20:53] VITALS: BP 128/82; PULSE 103; RESP 20; O2SAT 94
--- NOTE | 2017-01-15 22:48 | NUR ---
Transfer Pt was transferred via ambulance around 2099, belongings gathered and sent w/ patient, vitals stable prior to transfer, left PIV DC'd. Report given to [facility] by day RN per report, short report also given to transport staff on arrival. BG checked and insulin given per sliding scale, transport staff aware. Addendum: 01/15/17 at 2253 by RAKESH GUTIÉRREZ RN Patient to transfer to [facility].
== END 2017-01-15 21:00 | disposition short-term general hospital (02) | DRG 918 ==
LOC: SED 15:18 → EDBD 15:18 → CCU 19:38 → PCC 01-13 16:58
PROVIDERS: ADMIT Internal Medicine; ATTEND Internal Medicine
PROC: 4A033R1 Measurement of Arterial Saturation, Peripheral, Percutaneous Approach (ICD-10-PCS; principal; 2017-01-12)
DX: T42.4X2A Poisoning by benzodiazepines, intentional self-harm, initial encounter (principal); Y92.9 Unspecified place or not applicable; E11.65 Type 2 diabetes mellitus with hyperglycemia; Z79.84 Long term (current) use of oral hypoglycemic drugs; I10 Essential (primary) hypertension; E78.5 Hyperlipidemia, unspecified; F32.9 Major depressive disorder, single episode, unspecified